=== PATIENT | female | born 1995 | race Caucasian/White ===

== ENCOUNTER 2017-02-12 14:41 | Emergency (ER) | payer OTHER ==
[2017-02-12 15:39] VITALS: BP 116/56
--- NOTE | 2017-02-12 15:43 | UC ---
Throat Pain/Nasal Masood HPI - HPI Summary HPI Summary: The patient comes in today for: 1. Sore throat: Onset: "a few days." Palliative/provocative: Swallowing makes it worse. Quality: Stabbing with swallowing, not swollowing--ache. Region: Posterior pharynx. Severity: 8/10 Time: Constant. Associated symptoms: Mononucleosis: NOt had. Fevers: None. Rhinitis: None Cough: "little bit."--greenish. * - History of Current Complaint Chief Complaint: UCGeneralIllness Stated Complaint: SORE THROAT,NAUSEA,HEADACHE Time Seen by Provider: 02/12/17 15:27 Hx Obtained From: Patient Hx Last Menstrual Period: 02/17/17 - Allergies/Home Medications Allergies/Adverse Reactions: Allergies Allergy/AdvReac Type Severity Reaction Status Date / Time No Known Allergies Allergy Verified 02/12/17 15:24 PMH/Surg Hx/FS Hx/Imm Hx Previously Healthy: Yes Endocrine History Of: Denies: Diabetes, Thyroid Disease, Hyperthyroidism, Hypothyroidism, Dyslipidemia Cardiovascular History Of: Denies: Cardiac Disorders, Hypertension, Pacemaker/ICD, Myocardial Infarction , Congestive Heart Failure, Atrial Fibrillation, Deep Vein Thrombosis, Bleeding Disorders Respiratory History Of: Denies: COPD, Asthma, Bronchitis, Pneumonia, Pulmonary Embolism GI/ History Of: Denies: Gastroesophageal Reflux, Ulcer, Gastrointestinal Bleed, Gall Bladder Disease, Kidney Stones, Diverticulitis, Renal Disease, Urosepsis Neurological History Of: Denies: TIA, CVA, Dementia, Seizures, Migraine Psychological History Of: Reports: Anxiety - Never diagnosed. Denies: Depression, Bipolar Disorder, Schizophrenia, Post Traumatic Stress Disorder Cancer History Of: Denies: Lung Cancer, Colorectal Cancer, Breast Cancer, Prostate Cancer, Cervical Cancer Other History Of: Negative For: HIV, Hepatitis B, Hepatitis C, Anticoagulant Therapy - Surgical History Surgical History: None - Family History Known Family History: Positive: Hypertension Negative: Cardiac Disease - Social History Occupation: Unemployed Alcohol Use: None Substance Use Type: None Smoking Status (MU): Heavy Every Day Tobacco Smoker Type: Cigarettes Amount Used/How Often: 1/2 PPD Length of Time of Smoking/Using Tobacco: 7 years Review of Systems Constitutional: Negative Skin: Negative Eyes: Negative ENT: Sore Throat Respiratory: Cough Cardiovascular: Negative Gastrointestinal: Negative Genitourinary: Negative Neurological: Headache All Other Systems Reviewed And Are Negative: Yes Physical Exam Triage Information Reviewed: Yes Appearance: Well-Appearing, No Pain Distress, Well-Nourished Vital Signs: Initial Vital Signs Temp 98.4 F 02/12/17 15:25 Pulse 97 02/12/17 15:25 Resp 16 02/12/17 15:25 BP 116/56 02/12/17 15:25 Pulse Ox 99 02/12/17 15:25 Vital Signs Reviewed: Yes Eyes: Positive: Conjunctiva Clear ENT: Positive: Hearing grossly normal, Pharyngeal erythema, Tonsillar exudate - Minimal exudate., Other: - Cerumen in the ears blocked good visualization of the TM bilaterally.. Negative: Nasal congestion, Nasal drainage Dental: Negative: Gross Decay/Caries @, Dental Fracture @ Neck: Positive: Supple, Nontender, No Lymphadenopathy. Negative: Nuchal Rigidity Respiratory: Positive: Lungs clear, No respiratory distress, No accessory muscle use. Negative: Rhonchi, Wheezing Cardiovascular: Positive: RRR, No Murmur Abdomen Description: Positive: Nontender, No Organomegaly, Soft. Negative: Distended, Guarding Musculoskeletal: Positive: Strength Intact, ROM Intact, No Edema Neurological: Positive: Alert, Muscle Tone Normal Psychological: Positive: Age Appropriate Behavior, Consolable Skin: Negative: rashes, breakdown Diagnostics - Laboratory Diagnostic Studies Completed/Ordered: Strep test: (-) Throat Pain/Nasal Course/Dx - Course Assessment/Plan: Patient told of the negative strep test which suggests viral etiology. She declines monospot testing. - Differential Dx/Diagnosis Provider Diagnoses: Viral pharyngitis. Bronchitis/sinusitis Discharge - Discharge Plan Condition: Stable Disposition: HOME Patient Education Materials: Pharyngitis (ED), Sinusitis (ED), Acute Bronchitis (ED) Additional Instructions: Please see your primary care provider in about one to two weeks to see how well you are doing. If you get worse, please be seen sooner.
== END 2017-02-12 16:28 | disposition home or self-care (01) ==
LOC: UCCORT 14:41
DX: J02.8 Acute pharyngitis due to other specified organisms (principal); J40 Bronchitis, not specified as acute or chronic; J32.9 Chronic sinusitis, unspecified; F17.210 Nicotine dependence, cigarettes, uncomplicated
CPT/HCPCS: 87651; 99202; G0463

== ENCOUNTER 2019-02-28 10:09 | Emergency (ER) | payer OTHER ==
[2019-02-28 10:27] VITALS: BP 102/60
--- NOTE | 2019-02-28 10:27 | UC ---
Ear Complaint HPI - HPI Summary HPI Summary: Patient's left ear has been clogged since yesterday afternoon and has had ringing in her left ear since then. She has had no cold symptoms although she does have occasional allergies. - History of Current Complaint Stated Complaint: LEFT EAR Time Seen by Provider: 02/28/19 10:26 Hx Obtained From: Patient Hx Last Menstrual Period: 02/17/17 ?: No Onset/Duration: Gradual Onset Severity Initially: Mild Severity Currently: Mild Aggravating Factors: Nothing Alleviating Factors: Nothing - Allergies/Home Medications Allergies/Adverse Reactions: Allergies Allergy/AdvReac Type Severity Reaction Status Date / Time No Known Allergies Allergy Verified 02/28/19 10:25 PMH/Surg Hx/FS Hx/Imm Hx Previously Healthy: Yes Other History Of: Negative For: HIV, Hepatitis B, Hepatitis C, Anticoagulant Therapy - Surgical History Surgical History: None - Family History Known Family History: Positive: Hypertension Negative: Cardiac Disease - Social History Alcohol Use: None Substance Use Type: None Smoking Status (MU): Heavy Every Day Tobacco Smoker Type: Cigarettes Amount Used/How Often: 1/2 PPD Length of Time of Smoking/Using Tobacco: 7 years Review of Systems All Other Systems Reviewed And Are Negative: Yes ENT: Positive: Other - Ear feels clogged. Patient denies any pain. Tinnitus since yesterday in her left ear. Is Patient Immunocompromised?: No Physical Exam Triage Information Reviewed: Yes Appearance: Well-Appearing, No Pain Distress, Well-Nourished Vital Signs Reviewed: Yes Eye Exam: Normal ENT: Positive: Pharynx normal, TMs normal, Uvula midline Neck: Positive: Supple, Nontender, No Lymphadenopathy Respiratory: Positive: Lungs clear, Normal breath sounds, No respiratory distress, No accessory muscle use Cardiovascular: Positive: RRR, No Murmur, Pulses Normal, Brisk Capillary Refill Musculoskeletal Exam: Normal Neurological Exam: Normal Psychological Exam: Normal Skin Exam: Normal Ear Complaint Course/Dx - Course Course Of Treatment: Sincerely exam was completely normal. Going to try Flonase 2 sprays in each nostril once a day for a week and then decrease to 1 spray in each nostril once a day. She prefers to see Dr. Gauthier in [place] for further care if she has continued feeling of her ear being blocked with ringing in her ears. - Differential Dx/Diagnosis Provider Diagnosis: Tinnitus of left ear, Serous otitis media Discharge - Sign-Out/Discharge Documenting (check all that apply): Patient Departure All imaging exams completed and their final reports reviewed: No Studies - Discharge Plan Condition: Fair Disposition: HOME Prescriptions: Fluticasone NASAL SPRAY 50MCG* [Flonase NASAL SPRAY 50MCG*] 2 spray BOTH NARES DAILY 7 Days #1 btl Patient Education Materials: Serous Otitis Media (ED), Tinnitus (ED) Referrals: No Primary Care Phys,NOPCP [Primary Care Provider] - Kenna Gauthier MD [Medical Doctor] - Additional Instructions: Increase fluids, Flonase 2 sprays in each nostril once a day for one week then decrease to 1 spray in each nostril once a day. Definite follow-up with your preferred ear nose and throat doctor, Dr. Gauthier, on Saturday if no improvement - Billing Disposition and Condition Condition: FAIR Disposition: Home
== END 2019-02-28 10:43 | disposition home or self-care (01) ==
LOC: UCCORT 10:09
DX: H93.12 Tinnitus, left ear (principal); H65.92 Unspecified nonsuppurative otitis media, left ear; F17.210 Nicotine dependence, cigarettes, uncomplicated
CPT/HCPCS: 99212; G0463